=== PATIENT | female | born 1955 | race Two or more races ===

== ENCOUNTER 2025-01-30 05:56 | Day surgery (SDC) | payer OTHER ==
[2025-01-29 11:40] VITALS: BP 122/55
[~2025-01-30 05:56] MED LIST: AVAPRO300 MG PO
[2025-01-30] MEDS ORDERED: CEFAZOLIN SODIUM 1,000 MG VIAL ONE ×2 (08:15→09:30)
[2025-01-30] MEDS ORDERED: GENTAMICIN SULFATE 40 MG/ML VIAL ONE (09:30)
[2025-01-30] MEDS ORDERED: POVIDONE-IODINE 118 ML BOTT TOP ONE (09:30)
[2025-01-30] MEDS ORDERED: MORPHINE SULFATE 4 MG/ML VIAL IV ONE (13:05)
== END 2025-01-30 16:50 | disposition home or self-care (01) ==
LOC: CIR.AMB 05:56
PROVIDERS: ATTEND Surgery
DX: C50.111 Malignant neoplasm of central portion of right female breast (principal); C50.411 Malignant neoplasm of upper-outer quadrant of right female breast; N60.81 Other benign mammary dysplasias of right breast; R59.0 Localized enlarged lymph nodes; Z90.11 Acquired absence of right breast and nipple